=== PATIENT | female | born 1980 | race Caucasian/White ===

== ENCOUNTER 2018-01-11 03:28 | Emergency (ER) | payer SELFPAY ==
[2018-01-11 03:34] VITALS: BMI 36.2
[2018-01-11 03:37] VITALS: BP 110/70; PULSE 96; RESP 18; TEMP 98.6; O2SAT 98
[2018-01-11] MEDS ORDERED: Naproxen 500 MG TAB PO ONE ×2 (03:48→05:29)
--- NOTE | 2018-01-11 03:57 | ED PDOC ---
Upper Extremity Pain/Injury Time Seen by Provider: 01/11/18 03:36 Chief Complaint (Nursing): Finger,Hand,&Wrist History Per: Patient Additional Complaint(s): Pt. states earlier today she attempted to block a punch with her R hand and in doing so she injured her R hand. Denies numbness, tingling, other injury. Past Medical History Reviewed: Historical Data, Nursing Documentation, Vital Signs Vital Signs: Last Vital Signs Temp 98.6 F 01/11/18 03:34 Pulse 96 H 01/11/18 03:34 Resp 18 01/11/18 03:34 BP 110/70 01/11/18 03:34 Pulse Ox 98 01/11/18 03:34 - Family History Family History: States: No Known Family Hx - Home Medications Home Medications: Ambulatory Orders Medication Instructions Recorded Naproxen [Naprosyn] 500 mg PO BID PRN #20 tab 01/11/18 - Allergies Allergies/Adverse Reactions: Allergies Allergy/AdvReac Type Severity Reaction Status Date / Time No Known Allergies Allergy Verified 01/11/18 03:34 Review of Systems ROS Statement: Except As Marked, All Systems Reviewed And Found Negative Musculoskeletal: Positive for: Hand Pain Physical Exam - Physical Exam Appears: Positive for: Well, Non-toxic, No Acute Distress Skin: Positive for: Normal Color, Warm. Negative for: Rash Pulses-Radial (L): 2+ Pulses-Radial (R): 2+ Extremity: Positive for: Other (moderate swelling to R thenar area with limited ROM to 1st MCP joint; no deformity to R thumb; cap refill < 2 seconds to R thumb ) Neurologic/Psych: Positive for: Alert, Oriented - ECG O2 Sat by Pulse Oximetry: 98 - Radiology X-Ray: Interpreted by Me (R hand x-ray) X-Ray Interpretation: No Acute Disease - Progress ED Course And Treament: Naproxen 500mg PO, R hand x-ray ordered. Case d/w Dr. Lawrence who recommends thumb spica splint and f/u in his office in 10 days. Pt. informed of plan and agrees with care. CD copy of x-rays given to patient. Thumb immobilized in orthoglass thumb spica splint applied by PA. Post immobilization examination: cap refill < 2 seconds; distal sensation intact. Disposition - Clinical Impression Clinical Impression: Thumb injury - Patient ED Disposition Is Patient to be Admitted: No - Disposition Referrals: [facility] [Outside] [facility] [Outside] Jerome Lawrence MD [Staff Provider] - Disposition: Routine/Home Disposition Time: 05:15 Condition: STABLE Additional Instructions: Follow up with Dr. Lawrence in 10 days for further evaluation. Return to ED immediately if symptoms worsen. Prescriptions: Naproxen [Naprosyn] 500 mg PO BID PRN #20 tab PRN Reason: Pain Instructions: Common Finger Injuries (DC), Sprained Thumb (DC) Forms: [employer] ([place]) Print Language: MALAYSIAN
--- NOTE | 2018-01-11 09:07 | RAD ---
PROCEDURE: Right Hand Radiographs. HISTORY: trauma COMPARISON: None. FINDINGS: BONES: No acute fracture. JOINTS: Unremarkable. SOFT TISSUES: Normal. OTHER FINDINGS: None. IMPRESSION: No demonstrated fracture or dislocation.
== END 2018-01-11 05:35 | disposition home or self-care (01) ==
LOC: H.ER 03:28
DX: S69.91XA Unspecified injury of right wrist, hand and finger(s), initial encounter (principal); Y04.0XXA Assault by unarmed brawl or fight, initial encounter; Y92.89 Other specified places as the place of occurrence of the external cause